=== PATIENT | male | born 1965 | race Hispanic/Latino ===

== ENCOUNTER 2017-09-24 06:53 | Day surgery (SDC) | payer BC ==
[~2017-09-24] VITALS: Ht 182.9 cm; Wt 113.6 kg
[~2017-09-24 06:53] MED LIST: ATOR10TA69 PO; CETI10CA5 PO; HYDR12.530 PO; LISI30TA4 PO; OMEP-272 PO; SODIUM CHLORIDE 0.9% 1000ML 1,000 ML IV ONE
[2017-09-24 07:08] VITALS: BP 142/92
[2017-09-24] MEDS ORDERED: PROPOFOL 10 MG/ML 20ML VIAL IV ONE ×2 (08:39)
[2017-09-24 09:06] VITALS: BP 91/54
== END 2017-09-24 09:38 | disposition home or self-care (01) ==
LOC: DAH 06:53 → ENDO 06:53
PROVIDERS: ATTEND Internal Medicine Gastroenterology
DX: Z12.11 Encounter for screening for malignant neoplasm of colon (principal); K62.1 Rectal polyp; K57.30 Diverticulosis of large intestine without perforation or abscess without bleeding; I10 Essential (primary) hypertension; G43.909 Migraine, unspecified, not intractable, without status migrainosus; E78.4 Other hyperlipidemia; F17.200 Nicotine dependence, unspecified, uncomplicated; Z98.890 Other specified postprocedural states; Z79.899 Other long term (current) drug therapy
CPT/HCPCS: 45380; 88305; A4606; J2704 ×2; J7030

== ENCOUNTER 2017-12-02 16:31 | Emergency (ER) | payer BC ==
[~2017-12-02 16:31] MED LIST changes: -SODIUM CHLORIDE 0.9% 1000ML 1,000 ML IV ONE
[2017-12-02 16:52] LABS: APPEARANCE,URINE Clear (CLEAR); BILIRUBIN,URINE Negative (NEGATIVE); COLOR,URINE Dark Yellow (YELLOW); GLUCOSE, URINE (UA) Negative (NEGATIVE); KETONES,URINE Trace mg/dL (NEGATIVE); LEUKOCYTE ESTERASE ,URINE Small (NEGATIVE); NITRATE,URINE Negative (NEGATIVE); OCCULT BLOOD,URINE Negative (NEGATIVE); PH,URINE 7.5 (5.0-8.0); PROTEIN,URINE Negative (NEGATIVE)
[2017-12-02 17:07] LABS: BASOPHILS % (AUTO) 0.6 % (0.0-5.0); EOSINOPHILS % (AUTO) 1.6 % (0.0-8.0); HEMATOCRIT 43.2 % (42-54); LYMPHOCYTES % (AUTO) 21.1 % (21.0-51.0); MEAN CORPUSCULAR HEMOGLOBIN 32.5 pg (27.0-33.0); MEAN CORPUSCULAR VOLUME 92.8 fL (79-99); MONOCYTES % (AUTO) 8.4 % (3.0-13.0); NEUTROPHILS % (AUTO) 68.3 % (40.0-77.0); PLATELET COUNT (AUTO) 326 K/uL (130-400); RED BLOOD CELL COUNT(AUTO) 4.66 MIL/uL (4.50-6.20); RED CELL DISTRIBUTION WIDTH 13.2 % (11.0-15.5); WHITE BLOOD COUNT (AUTO) 10.3 K/uL (4.8-10.8)
[2017-12-02 17:20] LABS: CREATININE 0.8 mg/dL (0.5-1.5); POTASSIUM 3.8 mmol/L (3.5-5.1)
[2017-12-02 17:27] LABS: BACTERIA,URINE Rare /HPF (None Seen); MUCUS,URINE Few LPF (None Seen); RBC,URINE None Seen /HPF (0-1); WBC,URINE 0-1 /HPF (0-1)
[2017-12-02 17:30] LABS: ALBUMIN 3.3 g/dL (3.5-5.0); BILIRUBIN,TOTAL 0.6 mg/dL (0.2-1.0); TOTAL PROTEIN, SERUM 7.6 g/dL (6.0-8.3)
[2017-12-02] MEDS ORDERED: SODIUM CHLORIDE 0.9% 500ML 500 ML IV ONE (17:51)
[2017-12-02] MEDS ORDERED: KETOROLAC TROMETHAMINE 30MG/ML ONE (17:51)
== END 2017-12-02 18:37 | disposition home or self-care (01) ==
LOC: EDH 16:31
DX: K57.92 Diverticulitis of intestine, part unspecified, without perforation or abscess without bleeding (principal); K21.9 Gastro-esophageal reflux disease without esophagitis; I10 Essential (primary) hypertension; Z87.890 Personal history of sex reassignment; Z72.0 Tobacco use
CPT/HCPCS: 36415; 74176; 80053; 81001; 85025; 96374; 99285; J1885; J7040

== ENCOUNTER → 2021-09-19 | Outpatient (CLI) | payer BC | END | disposition home or self-care (01) | LOC: RAH 13:44 | PROVIDERS: ATTEND Otolaryngology Plastic Surgery within the Head & Neck | DX: J34.3 Hypertrophy of nasal turbinates (principal); J32.0 Chronic maxillary sinusitis; J34.89 Other specified disorders of nose and nasal sinuses | CPT/HCPCS: 70486 ==

== ENCOUNTER 2022-05-16 17:48 | Inpatient (IN) | payer BC ==
[~2022-05-16] VITALS: Ht 185.4 cm; Wt 125.5 kg
[2022-05-16] MEDS ORDERED: MORPHINE 4 MG SYG IVP ONE (18:30)
[2022-05-16] MEDS ORDERED: 0.9%NACL 1000ML 2,000 ML IV ONE (18:30)
[2022-05-16 18:41] LABS: BASOPHILS % (AUTO) 0.3 % (0.0-5.0); EOSINOPHILS % (AUTO) 0.4 % (0.0-8.0); LYMPHOCYTES % (AUTO) 15.1 % (21.0-51.0); MEAN CORPUSCULAR HEMOGLOBIN 32.5 pg (27.0-33.0); MEAN CORPUSCULAR HGB CONC 35.5 g/dL (32.0-36.0); MEAN CORPUSCULAR VOLUME 91.4 fL (79-99); MONOCYTES % (AUTO) 6.9 % (3.0-13.0); PLATELET COUNT (AUTO) 308 K/uL (130-400); RED BLOOD CELL COUNT(AUTO) 5.14 MIL/uL (4.50-6.20); RED CELL DISTRIBUTION WIDTH 12.4 % (11.0-15.5); WHITE BLOOD COUNT (AUTO) 17.2 K/uL (4.8-10.8)
[2022-05-16 18:55] LABS: ALBUMIN 3.5 g/dL (3.5-5.0); POTASSIUM 3.7 mmol/L (3.5-5.1); TOTAL PROTEIN, SERUM 7.5 g/dL (6.0-8.3)
[2022-05-16] MEDS ORDERED: ONDANSETRON 4MG INJ IVP ONE (19:00)
[2022-05-16] MEDS ORDERED: IOHEXOL 350 MG/ML 100ML INFUS..BTL IV ONE (19:31)
[2022-05-16 20:54] LABS: APPEARANCE,URINE CLEAR (CLEAR); BILIRUBIN,URINE NEGATIVE (NEGATIVE); COLOR,URINE LIGHT-YELLOW (YELLOW); GLUCOSE, URINE (UA) NEGATIVE (NEGATIVE); KETONES,URINE NEGATIVE (NEGATIVE); LEUKOCYTE ESTERASE ,URINE NEGATIVE Leu/uL (NEGATIVE); NITRATE,URINE NEGATIVE (NEGATIVE); OCCULT BLOOD,URINE NEGATIVE (NEGATIVE); PROTEIN,URINE 10 mg/dL (NEGATIVE); UROBILINOGEN,URINE 0.2 mg/dL (0.2-1.0)
[2022-05-16 20:56] LABS: MUCUS,URINE RARE LPF (None Seen); WBC,URINE 0-1 /HPF (0-1)
[2022-05-16] MEDS ORDERED: ZOSYN 3.375GM +NS 50ML IV ONE (22:00)
[2022-05-16] MEDS ORDERED: MORPHINE 2 MG SYG IV PRN (22:30)
[2022-05-16] MEDS ORDERED: DiphenhydrAMINE HCL 50 MG/ML VIAL IV PRN (22:30)
[2022-05-16] MEDS ORDERED: 0.9%NACL 1000ML 1,000 ML IV SCH (22:30)
[2022-05-16] MEDS ORDERED: MORPHINE 4 MG SYG IV PRN (22:30)
[2022-05-16] MEDS ORDERED: ONDANSETRON 4MG INJ IV PRN (22:30)
[2022-05-16] MEDS ORDERED: ACETAMINOPHEN 325 MG TAB PO PRN ×2 (22:30)
[2022-05-16] MEDS ORDERED: HYDRALAZINE 20MG/ML VIAL IV PRN (22:30)
[2022-05-16] MEDS: 0.9%NACL 1000ML 1,000 ML IV SCH (22:44)
[2022-05-17] VITALS (7 sets, daily range): BP systolic 126–151; BP diastolic 74–87
[2022-05-17] MEDS: ZOSYN 3.375GM+NS 50ML 50 ML IV SCH ×3 (03:49→19:57)
[2022-05-17] MEDS: 0.9%NACL 1000ML 1,000 ML IV SCH ×3 (05:53→22:00)
[2022-05-17 06:59] LABS: HEMATOCRIT 42.1 % (42-54); MEAN CORPUSCULAR HEMOGLOBIN 32.1 pg (27.0-33.0); MEAN CORPUSCULAR HGB CONC 35.2 g/dL (32.0-36.0); MEAN CORPUSCULAR VOLUME 91.3 fL (79-99); RED BLOOD CELL COUNT(AUTO) 4.61 MIL/uL (4.50-6.20); RED CELL DISTRIBUTION WIDTH 12.6 % (11.0-15.5); WHITE BLOOD COUNT (AUTO) 12.5 K/uL (4.8-10.8)
[2022-05-17 07:08] LABS: HEMOGLOBIN A1C 6.2 % (4.0-6.0)
[2022-05-17 07:10] LABS: CREATININE 0.9 mg/dL (0.5-1.5); POTASSIUM 3.9 mmol/L (3.5-5.1)
[2022-05-17] MEDS: FAMOTIDINE 20MG VIAL IV SCH ×2 (08:57→19:57)
[2022-05-17] MEDS: ENOXAPARIN SODIUM 40 MG/0.4 ML SYRINGE SQ SCH (08:58)
[2022-05-18 03:56] VITALS: BP 136/79
[2022-05-18] MEDS: ZOSYN 3.375GM+NS 50ML 50 ML IV SCH ×2 (04:11→14:13)
[2022-05-18 05:08] LABS: BASOPHILS % (AUTO) 0.5 % (0.0-5.0); EOSINOPHILS % (AUTO) 2.8 % (0.0-8.0); HEMATOCRIT 40.8 % (42-54); LYMPHOCYTES % (AUTO) 29.8 % (21.0-51.0); MEAN CORPUSCULAR HGB CONC 34.8 g/dL (32.0-36.0); MEAN CORPUSCULAR VOLUME 91.9 fL (79-99); MONOCYTES % (AUTO) 7.8 % (3.0-13.0); NEUTROPHILS % (AUTO) 58.6 % (40.0-77.0); PLATELET COUNT (AUTO) 273 K/uL (130-400); RED BLOOD CELL COUNT(AUTO) 4.44 MIL/uL (4.50-6.20); RED CELL DISTRIBUTION WIDTH 12.1 % (11.0-15.5); WHITE BLOOD COUNT (AUTO) 10.1 K/uL (4.8-10.8)
[2022-05-18 05:14] LABS: CREATININE 0.8 mg/dL (0.5-1.5); PHOSPHORUS 3.1 mg/dL (2.5-4.9); POTASSIUM 3.7 mmol/L (3.5-5.1)
[2022-05-18] MEDS: 0.9%NACL 1000ML 1,000 ML IV SCH ×2 (06:11→14:30)
[2022-05-18 08:00] VITALS: BP 128/80
[2022-05-18] MEDS ORDERED: LISINOPRIL 10 MG TABLET PO SCH (09:00)
[2022-05-18] MEDS ORDERED: HYDROCHLOROTHIAZIDE 25 MG TABLET PO SCH (09:00)
[2022-05-18] MEDS: ENOXAPARIN SODIUM 40 MG/0.4 ML SYRINGE SQ SCH (09:30)
[2022-05-18] MEDS: FAMOTIDINE 20MG VIAL IV SCH (09:30)
[2022-05-18 12:00] VITALS: BP 144/76
[2022-05-18 16:00] VITALS: BP 142/86
[2022-05-18] MEDS ORDERED: AMOX1TAB16 PO (19:45)
== END 2022-05-18 20:15 | disposition home or self-care (01) | DRG 392 ==
LOC: EDH 17:48 → OBSVTOIN 22:11 → EDHIP 22:11 → 4BH 05-17 00:42
PROVIDERS: ADMIT Internal Medicine; ATTEND Internal Medicine
DX: K57.20 Diverticulitis of large intestine with perforation and abscess without bleeding (principal); E78.5 Hyperlipidemia, unspecified; Z68.36 Body mass index [BMI] 36.0-36.9, adult; E66.9 Obesity, unspecified; F17.200 Nicotine dependence, unspecified, uncomplicated; I10 Essential (primary) hypertension; Z82.0 Family history of epilepsy and other diseases of the nervous system; Z82.3 Family history of stroke; Z82.49 Family history of ischemic heart disease and other diseases of the circulatory system; Z82.5 Family history of asthma and other chronic lower respiratory diseases; Z83.3 Family history of diabetes mellitus
CPT/HCPCS: 36415; 74177; 80048; 80053; 80061; 81001; 83036; 83605; 83690; 83735; 84100; 85025; 85027; 87040; G0378; J1650; J2270; J2405; J2543; J3490; J7030; Q9967